=== PATIENT | male | born 1980 | race Caucasian/White ===

== ENCOUNTER 2020-08-05 14:05 | Emergency (ER) | payer OTHER ==
[~2020-08-05] VITALS: Ht 175.3 cm; Wt 79.4 kg
--- NOTE | 2020-08-05 15:02 | NUR ---
PT IS IN ROOM #2B. DR WILDE EVALUATED THE PT.
[2020-08-05] MEDS ORDERED: ONDANSETRON ODT 4 MG TAB.RAPDIS ONE (15:12)
[2020-08-05] MEDS ORDERED: MECLIZINE HCL 25 MG TABLET ONE ×2 (15:12→15:19)
[2020-08-05] MEDS ORDERED: MECLIZINE HCL 25 MG TABLET PO ONE (15:15)
[2020-08-05] MEDS ORDERED: ONDANSETRON ODT 4 MG TAB.RAPDIS SL ONE (15:15)
[2020-08-05] MEDS ORDERED: IBUPROFEN 800 MG TABLET PO ONE (15:45)
[2020-08-05] MEDS ORDERED: IBUPROFEN 800 MG TABLET ONE (15:55)
[2020-08-05 15:57] VITALS: BP 136/81
--- NOTE | 2020-08-05 15:57 | NUR ---
PT WAS D/C'd TO HOME. D/C INSTRUCTIONS GIVEN TO THE PT BY DR WILDE.
== END 2020-08-05 15:58 | disposition home or self-care (01) ==
LOC: ER 14:05
DX: H61.23 Impacted cerumen, bilateral (principal)
CPT/HCPCS: A4217; A4663; J8597; Q0162

== ENCOUNTER 2020-11-12 11:24 | Emergency (ER) | payer OTHER ==
[~2020-11-12] VITALS: Ht 175.3 cm; Wt 79.4 kg
--- NOTE | 2020-11-12 12:00 | NUR ---
at bedside for MSE at this time.
[2020-11-12] MEDS ORDERED: PRED20TA PO (12:16)
[2020-11-12] MEDS ORDERED: OMEP40CA13 PO (12:16)
[2020-11-12 12:21] VITALS: BP 144/83
--- NOTE | 2020-11-12 12:21 | NUR ---
Patient discharged to home in stable condition, ambulates with steady gait. Written and verbal after care instructions given. Patient verbalizes understanding of instructions. Stressed follow up or return to ER for worsening s/s.
== END 2020-11-12 12:24 | disposition home or self-care (01) ==
LOC: ER 11:24
DX: M54.12 Radiculopathy, cervical region (principal); R03.0 Elevated blood-pressure reading, without diagnosis of hypertension; F17.200 Nicotine dependence, unspecified, uncomplicated
CPT/HCPCS: A4663